=== PATIENT | male | born 1990 | race American Indian/Alaskan Native ===

== ENCOUNTER 2024-04-24 06:45 | Day surgery (SDC) | payer BC, SELFPAY ==
[2024-04-21 14:18] VITALS: BMI 27.6
[2024-04-24] VITALS (9 sets, daily range): BP systolic 100–118; BP diastolic 67–86; PULSE 70–84; RESP 13–20; TEMP 36.5–36.6; O2SAT 94–99; BMI 28.0
[2024-04-24] MEDS: DiphenhydrAMINE INJ 50 MG/ML VIAL 25 MG IV (07:26)
[2024-04-24] MEDS: fentaNYL CIT INJ 50 mCg/ML AMP 2ML (ASD USE ONLY) IV (07:30)
[2024-04-24] MEDS: MIDAZOLAM INJ 1 MG/ML VIAL 2 ML (ASD USE ONLY) 2 MG IV (07:30)
== END 2024-04-24 08:35 | disposition home or self-care (01) ==
PROVIDERS: PCP Family Medicine; Referring Provider Surgery; Visit Provider Surgery
PROC: 0DBE8ZX Excision of Large Intestine, Via Natural or Artificial Opening Endoscopic, Diagnostic (ICD-10-PCS; CPT 45380; principal; 2024-04-24 07:30)
DX: K60.2 Anal fissure, unspecified (principal)
CPT/HCPCS: 45378; J1200; J2250; J3010

== ENCOUNTER → 2024-10-11 | Outpatient (CLI) | payer OTHER, SELFPAY ==
--- NOTE | 2024-10-11 13:57 | XR_ITS ---
Examination: Lumbar spine, 5 views Technique: Lumbar spine AP, lateral, coned lateral lower lumbar spine, bilateral obliques 5 views Exam date and time: October 11, 2024 1417 hours INDICATIONS: Patient fell one month ago with injury to lower back, lower back pain. FINDINGS: Adequate alignment lumbar vertebral bodies No lumbar fracture Mild disc narrowing [id number] No spondylolisthesis IMPRESSION: No lumbar fracture
--- NOTE | 2024-10-11 13:57 | XR_ITS ---
Examination: Knee, right , 3 views Technique: Knee AP, lateral, oblique 3 views Date and time of exam: October 11, 2024 1417 hours INDICATIONS: Patient fell one month ago with injury to the knee, knee pain. FINDINGS: No fracture or dislocation No foreign body IMPRESSION: No fracture or dislocation
== END | disposition home or self-care (01) ==
PROVIDERS: PCP Family Medicine; Referring Provider Family Medicine; Visit Provider Family Medicine
DX: X58.XXXA Exposure to other specified factors, initial encounter (principal)
CPT/HCPCS: 72110; 73562